=== PATIENT | male | born 1945 | race Caucasian/White ===

== ENCOUNTER 2017-11-26 12:31 | Emergency (ER) | payer OTHER ==
[~2017-11-26] VITALS: Ht 172.7 cm; Wt 86.4 kg
[2017-11-26 13:43] LABS: BASOPHIL (%) 0.2 % (0-1); EOSINOPHIL (%) 0.1 % (0-5); HEMATOCRIT 42.8 % (38.0-50.0); HEMOGLOBIN 14.9 G/DL (12.5-16.6); IMMATURE GRANULOCYTE (%) 0.4 % (0.0-0.7); LYMPHOCYTE (%) 12.9 % (15-42); LYMPHOCYTE COUNT 1.2 K/uL (1.0-2.8); MCH 30.1 PG (29.0-34.0); MCHC 34.8 G/DL (30.0-36.0); MCV 86.5 FL (86-99); MONOCYTE (%) 5.4 % (3-12); MONOCYTE COUNT 0.5 K/uL (0-0.8); NEUTROPHIL COUNT 7.8 K/uL (1.8-6.4); PLATELET COUNT 105 K/uL (156-360); RBC DIS.WIDTH-CV 14.2 % (11.8-14.6); RBC DIS.WIDTH-SD 44.9 % (39-53); RED BLOOD COUNT 4.95 M/uL (4.00-5.50); WHITE BLOOD COUNT 9.6 K/uL (4.1-10.2)
[2017-11-26 13:52] LABS: PTT 34.9 SEC (25-37)
[2017-11-26 13:55] LABS: ALBUMIN 3.7 g/dL (3.2-4.8)
[2017-11-26 13:56] LABS: CHLORIDE 106 mEq/L (99-109); SODIUM 134 mEq/L (136-147)
[2017-11-26 13:58] LABS: GLUCOSE 131 mg/dL (70-99); TOTAL PROTEIN 6.5 g/dL (6.4-8.3)
[2017-11-26 14:00] LABS: TOTAL BILIRUBIN 1.9 mg/dL (0.0-1.0)
[2017-11-26 14:01] LABS: ALKALINE PHOSPHATASE 72 IU/L (3-129)
[2017-11-26 14:02] LABS: GFR ESTIMATE (CALCULATED) > 59 mL/min/ (58.99-99999)
[2017-11-26 14:03] LABS: AST (GOT) 21 IU/L (2-34); UREA NITROGEN (BUN) 13 mg/dL (9-23)
[2017-11-26 14:04] LABS: ALT (GPT) 17 IU/L (3-49); TROP-I INTERPRETATION NEGATIVE; TROPONIN-I < 0.01 ng/mL (0.0-0.30)
[2017-11-26 14:13] LABS: LIPASE 8 U/L (1.0-51.0)
[2017-11-26 14:50] LABS: APPEARANCE SL.HAZY ((CLEAR)); BILIRUBIN NEGATIVE; BLOOD NEGATIVE; COLOR YELLOW ((YELLOW)); GLUCOSE (STRIP) NEGATIVE; KETONES NEGATIVE; LEUKOCYTES MODERATE; NITRITE NEGATIVE; PROTEIN (STRIP) 30; SPECIFIC GRAVITY 1.009 (1.000-1.030); UROBILINOGEN 0.2 MG/DL (0.2-1.0)
[2017-11-26 14:52] LABS: BACTERIA RARE /HPF; EPITHELIAL CELLS NONE SEEN /HPF; MUCUS NONE SEEN /LPF; RED BLOOD CELLS 0-5 /HPF (0-5); UCUL ADDED? YES; WHITE BLOOD CELLS TNTC /HPF (0-5)
[2017-11-26] MEDS ORDERED: LYRICA150 MG PO (17:56)
[2017-11-26] MEDS ORDERED: COUMADIN5 MG PO ×2 (17:56)
[2017-11-26] MEDS ORDERED: PROTONIX40 MG PO (17:56)
[2017-11-26] MEDS ORDERED: DAILY VALUE1 EACH PO (17:57)
[2017-11-26] MEDS ORDERED: LYRICA200 MG PO (17:57)
[2017-11-26] MEDS ORDERED: MAGNESIUM OXID500 MG PO (17:57)
[2017-11-26] MEDS ORDERED: B-COMPLEX-VITA1 EACH PO (17:57)
[2017-11-26] MEDS ORDERED: ADVIL,NUPRIN,M200 MG PO (17:58)
[2017-11-26] MEDS ORDERED: LEVAQUIN500 MG PO (18:28)
[2017-11-26] MEDS ORDERED: PYRIDIUM100 MG PO (18:29)
[2017-11-26 19:21] VITALS: BP 130/93
== END 2017-11-26 19:31 | disposition home or self-care (01) ==
LOC: EME 12:31
PROVIDERS: Emergency Medicine
DX: N41.9 Inflammatory disease of prostate, unspecified (principal); K21.9 Gastro-esophageal reflux disease without esophagitis; I10 Essential (primary) hypertension; Z87.891 Personal history of nicotine dependence
CPT/HCPCS: 71045; 80053; 81003; 83605; 83690; 84484; 85025; 85610; 85730; 99281; 99285; J1956